=== PATIENT | female | born 1995 | race Hispanic/Latino ===

== ENCOUNTER 2017-09-04 03:13 | Emergency (ER) | payer SELFPAY ==
[2017-09-04 04:16] LABS: #Basophils 0.1 thou/uL (0.0-0.2); #Eosinphils 0.2 thou/uL (0.0-0.7); #Lymphocytes 2.9 thou/uL (1.20-3.40); #Monocytes 0.6 thou/uL (0.11-0.59); #Neutrophils 4.5 thou/uL (1.40-6.50); %Basophils 0.7 % (0.0-1.0); %Lymphocytes 35.4 % (21.0-51.0); %Monocytes 7.2 % (0.0-10.0); %Neutrophils 54.8 % (42.0-75.0); Hemoglobin 12.9 g/dL (12.0-16.0); Mean Corpuscular HGB CONC 35.1 g/dL (32.0-36.0); Mean Corpuscular Hemoglobin 28.8 pg (27.0-31.0); Mean Platelet Volume 7.9 fL (7.4-10.4); Platelet Count 272 thou/uL (130-400); RBC Distribution Width 12.1 % (11.5-14.5); White Blood Cell (WBC) Count 8.1 thou/uL (4.8-10.8)
[2017-09-04 04:18] LABS: Bilirubin Negative (Negative); Blood, Urine Moderate (Negative); Clarity CLEAR (Clear); Glucose, Urine (Dipstick) Negative (Negative); Leukocyte Negative (Negative); Nitrite Negative (Negative); Protein, Urine (Dipstick) Negative (Neg-Trace); Specific Gravity, Urine 1.014 (1.002-1.036); Urobilinogen 0.2 mg/dL (0.2-1.0)
[2017-09-04 04:20] LABS: Bacteria/HPF 1+ HPF (None Seen); Hyaline Casts/LPF 0-3 HYALINE CAST LPF (0-3 Hyaline); Pathc Cast-AUWi Flag 0.13 (0-2.49); WBC/HPF 0-3 HPF (0-3)
[2017-09-04 04:29] LABS: ALT (SGPT) 12 U/L (8-55); AST (SGOT) 18 U/L (5-34); Acetaminophen Less than 6.0 mcg/mL (10.0-30.0); Albumin 4.7 g/dL (3.5-5.0); Alcohol Less than 10 mg/dL (Less than 10); Alkaline Phosphatase 76 U/L (40-150); Anion Gap 11 mmol/L (10-20); BUN (Urea Nitrogen) 12 mg/dL (7.0-18.7); Bilirubin, Total 0.3 mg/dL (0.2-1.2); CK (CPK) 63 U/L (29-168); Calc. Creatinine Clearance 0 mL/min (70-130); Calcium 9.7 mg/dL (7.8-10.44); Carbon Dioxide 23 mmol/L (22-29); Chloride 106 mmol/L (98-107); Estimated GFR-MDRD Greater than 90; Globulin 2.4 g/dL (2.4-3.5); Glucose 105 mg/dL (70-105); Potassium 3.9 mmol/L (3.5-5.1); Protein, Total 7.1 g/dL (6.0-8.3); Salicylate Less than 8.0 mg/dL (15.0-30.0); Sodium 136 mmol/L (136-145)
[2017-09-04 04:29] LABS: Amphetamine Not Detected (NotDetected); Barbiturates Screen Not Detected (NotDetected); Benzodiazepine Screen Not Detected (NotDetected); Cocaine Metabolite Screen Not Detected (NotDetected); Medtox Control Line Valid? VALID (VALID); Medtox Reader # READER 4; Methadone Not Detected (NotDetected); Methamphetamine Not Detected (NotDetected); Opiate Screen Not Detected (NotDetected); Oxycodone Screen Not Detected (NotDetected); Phencyclidine (PCP) Not Detected (NotDetected); THC/Cannabinoid Screen Not Detected (NotDetected); Tricyclic Screen Not Detected (NotDetected)
[2017-09-04 04:34] LABS: Pregnancy Test - Urine (BHCG) Negative (Negative); Pregu Control Background? CLEAR/WHITE (CLR/WHITE); Pregu Control Bar Appear? YES (CONTROL BAR); Specific Gravity 1.014 (1.002-1.036)
== END 2017-09-04 08:31 | disposition home or self-care (01) ==
LOC: ERS 03:13
DX: F30.9 Manic episode, unspecified (principal)
CPT/HCPCS: 36415; 80053; 80306; 80307; 81003; 81015; 81025; 82550; 84443; 85025; 99283

== ENCOUNTER 2017-09-08 00:42 | Emergency (ER) | payer SELFPAY ==
[2017-09-08] MEDS ORDERED: Ziprasidone 20 MG VIAL ONE (02:05)
[2017-09-08] MEDS ORDERED: Lorazepam 2 MG/ML VIAL ONE (02:05)
[2017-09-08] MEDS ORDERED: Water For Injection,Sterile 20 ML ONE (02:06)
[2017-09-08 03:22] LABS: Bilirubin Negative (Negative); Blood, Urine Moderate (Negative); Clarity CLEAR (Clear); Glucose, Urine (Dipstick) Negative (Negative); Leukocyte Moderate (Negative); Nitrite Negative (Negative); Protein, Urine (Dipstick) Trace mg/dL (Neg-Trace); Specific Gravity, Urine 1.019 (1.002-1.036); Urobilinogen 0.2 mg/dL (0.2-1.0); pH, Urine 5.5 (5.0-9.0)
[2017-09-08 03:23] LABS: Pregnancy Test - Urine (BHCG) Negative (Negative); Pregu Control Background? CLEAR/WHITE (CLR/WHITE); Pregu Control Bar Appear? YES (CONTROL BAR); Specific Gravity 1.019 (1.002-1.036)
[2017-09-08 03:27] LABS: Bacteria/HPF None Seen HPF (None Seen); Hyaline Casts/LPF NONE SEEN LPF (0-3 Hyaline); Squamous Epithelial 0-3 HPF (0-3)
[2017-09-08 03:34] LABS: Amphetamine Not Detected (NotDetected); Barbiturates Screen Not Detected (NotDetected); Benzodiazepine Screen Not Detected (NotDetected); Cocaine Metabolite Screen Not Detected (NotDetected); Medtox Control Line Valid? VALID (VALID); Medtox Reader # READER 1; Methadone Not Detected (NotDetected); Methamphetamine Not Detected (NotDetected); Opiate Screen Not Detected (NotDetected); Oxycodone Screen Not Detected (NotDetected); Phencyclidine (PCP) Not Detected (NotDetected); THC/Cannabinoid Screen Not Detected (NotDetected); Tricyclic Screen Not Detected (NotDetected)
[2017-09-08 03:38] LABS: #Basophils 0.1 thou/uL (0.0-0.2); #Eosinphils 0.1 thou/uL (0.0-0.7); #Lymphocytes 2.8 thou/uL (1.20-3.40); #Monocytes 0.8 thou/uL (0.11-0.59); #Neutrophils 4.7 thou/uL (1.40-6.50); %Basophils 0.6 % (0.0-1.0); %Eosinophils 0.7 % (0.0-10.0); %Lymphocytes 33.3 % (21.0-51.0); %Monocytes 9.2 % (0.0-10.0); %Neutrophils 56.2 % (42.0-75.0); Hemoglobin 12.6 g/dL (12.0-16.0); Mean Corpuscular HGB CONC 34.6 g/dL (32.0-36.0); Mean Platelet Volume 7.6 fL (7.4-10.4); Platelet Count 276 thou/uL (130-400); RBC Distribution Width 12.2 % (11.5-14.5); White Blood Cell (WBC) Count 8.4 thou/uL (4.8-10.8)
[2017-09-08 04:00] LABS: ALT (SGPT) 13 U/L (8-55); AST (SGOT) 18 U/L (5-34); Acetaminophen Less than 6.0 mcg/mL (10.0-30.0); Albumin 4.9 g/dL (3.5-5.0); Alcohol Less than 10 mg/dL (Less than 10); Alkaline Phosphatase 64 U/L (40-150); Anion Gap 15 mmol/L (10-20); BUN (Urea Nitrogen) 14 mg/dL (7.0-18.7); Bilirubin, Total 0.5 mg/dL (0.2-1.2); CK (CPK) 178 U/L (29-168); Calc. Creatinine Clearance 0 mL/min (70-130); Calcium 9.7 mg/dL (7.8-10.44); Carbon Dioxide 20 mmol/L (22-29); Chloride 109 mmol/L (98-107); Estimated GFR-MDRD Greater than 90; Globulin 2.6 g/dL (2.4-3.5); Glucose 96 mg/dL (70-105); Potassium 3.7 mmol/L (3.5-5.1); Protein, Total 7.5 g/dL (6.0-8.3); Salicylate Less than 8.0 mg/dL (15.0-30.0); Sodium 140 mmol/L (136-145)
[2017-09-08] MEDS ORDERED: Lorazepam 1 MG TAB ONE ×2 (18:44→23:10)
[2017-09-09] MEDS ORDERED: Haloperidol Lactate 5 MG/ML VIAL ONE ×2 (00:03→19:21)
[2017-09-09] MEDS ORDERED: Water For Injection,Sterile 20 ML ONE (00:26)
[2017-09-09] MEDS ORDERED: Ziprasidone 20 MG VIAL ONE (00:26)
[2017-09-09] MEDS ORDERED: Acetaminophen 500 MG TAB ONE (00:39)
[2017-09-09] MEDS ORDERED: Acetaminophen 325 MG TAB ONE (00:41)
[2017-09-09] MEDS ORDERED: Ziprasidone 20 MG CAP ONE (16:37)
[2017-09-09] MEDS ORDERED: Lorazepam 2 MG/ML VIAL ONE (19:21)
[2017-09-11] MEDS ORDERED: OLANZapine 5 MG TAB PO SCH (09:00)
[2017-09-12] MEDS ORDERED: Ziprasidone 20 MG VIAL ONE (00:26)
[2017-09-12] MEDS ORDERED: Water For Inject, Bacteriostat 30 ML ONE (00:26)
== END 2017-09-12 04:30 ==
LOC: ERS 00:42
DX: F29 Unspecified psychosis not due to a substance or known physiological condition (principal); Z79.899 Other long term (current) drug therapy
CPT/HCPCS: 36415; 80053; 80306; 80307; 81003; 81015; 81025; 82550; 84443; 85025; 96372; J1630; J2060; J3486

== ENCOUNTER 2019-03-24 00:06 | Inpatient (IN) | payer MEDICAID, OTHER, SELFPAY ==
[2019-03-24 00:51] VITALS: BMI 25.0
[2019-03-24] MEDS ORDERED: Butorphanol Tartrate 1 MG/ML VIAL SLOW IVP PRN (00:57)
[2019-03-24] MEDS ORDERED: Lidocaine 1% (PF) 30 ML VIAL SC PRN (00:57)
[2019-03-24] MEDS ORDERED: NS / Oxytocin 40 units/1000ml 1,000 ML IV PRN (00:57)
[2019-03-24] MEDS ORDERED: Ondansetron PF 4 MG/2 ML Vial IVP PRN (00:57)
[2019-03-24] MEDS ORDERED: Ibuprofen 800 MG TAB PO PRN (00:57)
[2019-03-24] MEDS ORDERED: Promethazine HCl 25 MG/ML VIAL IM PRN (00:57)
[2019-03-24] MEDS ORDERED: HYDROcodone/Acetaminophen 5/325 mg Tablet PO PRN ×4 (00:57→02:35)
[2019-03-24] MEDS ORDERED: hydrALAZINE 20 MG/ML VIAL SLOW IVP PRN ×2 (00:57→02:35)
--- NOTE | 2019-03-24 00:59 | PDOC.EVN ---
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
[2019-03-24] MEDS: Lactated Ringer's 1,000 ML IV SCH ×3 (01:00→16:26)
[2019-03-24 01:42] LABS: Hemoglobin 12.3 g/dL (12.0-16.0); Mean Corpuscular Hemoglobin 29.9 pg (27.0-31.0); Mean Corpuscular Volume 85.2 fL (78.0-98.0); Mean Platelet Volume 8.7 fL (7.4-10.4); Platelet Count 222 thou/uL (130-400); Red Blood Cell (RBC) Count 4.13 mill/uL (4.20-5.40); White Blood Cell (WBC) Count 15.4 thou/uL (4.8-10.8)
--- NOTE | 2019-03-24 02:07 | PDOC.LDHP ---
Labor and Delivery H&P HPI: Patient of Shante Asked to be stand by as Shante not available. G1 Current gestational age (weeks): 39 Grav: 1 Current complications: none Abnormal US findings: No Current medications: pre-krystle vitamins Previous surgical history: other (eye surgery 2010) Allergies/Adverse Reactions: Allergies Allergy/AdvReac Type Severity Reaction Status Date / Time quetiapine [From Seroquel] Allergy Verified 03/24/19 00:49 Social history: none - Physical Exam General: NAD Heart: RRR Lungs: CTAB Abdomen: gravid - Vaginal Exam cm dilated: 10 Effacement: 100% Station: 1+ - Assessment L&D Assessment: term patient in labor - Plan Plan: admit to L&D, informed consent obtained, anesthesia consult for pain management
--- NOTE | 2019-03-24 02:12 | PDOC.EVN ---
Event Note - Event Note Event Note: At Bedside: CX 10/100/+2
[2019-03-24 02:21] LABS: HBSAg Index 0.24 S/CO (0-0.99); HIV (1/2) Antibody/Antigen Non-Reactive (NonReactive); Hep B Surf Ag Non-Reactive S/CO (NonReactive)
[2019-03-24] MEDS ORDERED: Carboprost 250 MCG/ML AMP ONE (02:26)
[2019-03-24] MEDS ORDERED: Misoprostol 200 MCG TAB ONE ×4 (02:26→03:31)
--- NOTE | 2019-03-24 02:33 | PDOC.OPDEL ---
OB Operative/Delivery Note Delivery Dr/Surgeon: Orion Pre-Delivery Diagnosis: active labor Procedure/Post Delivery Dx: spontaneous vaginal delivery (at 0220) Anesthesia: local (poured onperineum at delivery (not injected)) - Findings A - 1 min: 7 - 5 min: 9 - Additional Findings/Plan Placenta delivered: spontaneous (at 0223; Chelly) Repaired Obstetrical Laceration: 1st degree (right hymenal not requiring suture) Estimated blood loss: 300 Compilations/Other Findings: baby vigorous No NC Intact placenta with 3vc..Savi at 0223, baby at 0220 Delayed cord clamp for 1 min Post delivery plan: routine recovery (responded to I/O cath and fundal massage. I/O cath for 100ml baby at 0220, no NC Placenta, [place] at 0223 Apgars 7/9 )
[2019-03-24] MEDS ORDERED: Preparation H Ointment 28 GM TUBE PR PRN (02:35)
[2019-03-24] MEDS ORDERED: Bisacodyl 10 MG SUPP PR PRN (02:35)
[2019-03-24] MEDS ORDERED: Lanolin Ointment 7 GM TUBE TOP PRN (02:35)
[2019-03-24] MEDS ORDERED: Milk Of Magnesia 30 ML UDCUP PO PRN (02:35)
[2019-03-24] MEDS ORDERED: NS / Oxytocin 40 units/1000ml 1,000 ML IV SCH (02:45)
--- NOTE | 2019-03-24 03:01 | PDOC.EVN ---
Event Note - Event Note Event Note: Delivery addendum: There was brief uterine atony immediately PP as I was in the room, post placenta. I performed I/O cath and performed uterine fundal massage. I placed 800mvg cytotec [place] as preventative care, but do not suspect PPH as EBL was 300 and QBL was less.
[2019-03-24 04:35] LABS: Syphilis Antibody Nonreactive (Nonreactive); Syphilis Antibody Index 0.03 S/CO (<1.00 Non-Reactive)
[2019-03-24] MEDS: Ibuprofen 800 MG TAB PO SCH ×3 (06:23→21:29)
--- NOTE | 2019-03-24 06:41 | PDOC.PP ---
Post Progress Note Post Day #: 0 Subjective: Doing well PO intake tolerated: yes Flatus: yes Ambulation: yes Vital Signs (12 hours) Temp Pulse Resp BP Pulse Ox 03/24/19 05:25 98.1 F 56 L 18 109/55 L 99 03/24/19 00:41 98.7 F 91 18 120/70 Weight Weight 146 lb - Physical Examination General: NAD Respiratory: non-labored breathing Abdominal: lochia, no distention, appropriately TTP Extremities: negative homans (B) Neurological: no gross focal deficits Psychiatric: A&Ox3, normal affect Result Diagrams: 03/24/19 01:33 Additional Labs: Post Labs Blood Type O POSITIVE 03/24/19 01:43 Hep Bs Antigen Non-Reactive S/CO (NonReactive) 03/24/19 01:33 (1) Vaginal delivery Code(s): O80 - ENCOUNTER FOR FULL-TERM UNCOMPLICATED DELIVERY Status: Acute - Assessment/Plan PPD 4 hrs Doing well Continue routine PP care
[2019-03-24] MEDS: Docusate Calcium (SURFAK) 240 MG CAP PO SCH ×2 (08:52→21:30)
[2019-03-24] MEDS: Ferrous Sulfate 325 MG TAB PO SCH ×2 (08:53→16:26)
[2019-03-24] MEDS ORDERED: Varicella virus, LIVE 0.5 ML VIAL SC ONE (09:00)
[2019-03-24] MEDS ORDERED: Adacel (T-DAP) 0.5 ML SYRINGE IM ONE (09:00)
[2019-03-24] MEDS ORDERED: Measles/Mumps/Rubella 10 MCG/0.5 ML VIAL SC ONE (09:00)
[2019-03-24] MEDS ORDERED: FLU VACC QS2019-20(6MOS UP)/PF 60 MCG/0.5 ML SYRINGE IM ONE (21:00)
[2019-03-25] MEDS: Lactated Ringer's 1,000 ML IV SCH ×2 (04:59→12:23)
[2019-03-25] MEDS: Ibuprofen 800 MG TAB PO SCH ×2 (05:56→14:09)
[2019-03-25] MEDS: Ferrous Sulfate 325 MG TAB PO SCH (09:41)
[2019-03-25] MEDS: Docusate Calcium (SURFAK) 240 MG CAP PO SCH (09:42)
[2019-03-25 12:03] VITALS: BP 108/56; TEMP 97.7
--- NOTE | 2019-03-25 16:27 | PDOC.PP ---
Post Progress Note Post Day #: 1 Subjective: PT is doing very well. She has some abdominal cramping with minimal lochia. Baby is breast feeding well. SHe has been up and ambulating and took a shower this morning. SHe is urinating without difficulty. No leg pain or swelling. PO intake tolerated: yes Flatus: yes Ambulation: yes Vital Signs (12 hours) Temp Pulse Resp BP Pulse Ox 03/25/19 08:00 97.7 F 72 16 108/56 L 97 Weight Weight 146 lb - Physical Examination General: NAD Respiratory: non-labored breathing Abdominal: + bowel sounds, lochia, no distention, appropriately TTP Fundus firm & at: 2 cm below umbilicus Neurological: no gross focal deficits Psychiatric: A&Ox3, normal affect Result Diagrams: 03/24/19 01:33 Additional Labs: Post Labs Blood Type O POSITIVE 03/24/19 01:43 Hep Bs Antigen Non-Reactive S/CO (NonReactive) 03/24/19 01:33 - Assessment/Plan PT is doing well with minimal lochia. Baby is breast feeding well. Pt request to go home later this evening when baby is discharged. Rx for ibuprofen 600 mg sent to pharmacy. She will scheduled 6 week PP f/u. Discharge planning discussed and questions answered.
== END 2019-03-25 16:40 | disposition home or self-care (01) | DRG 807 ==
LOC: L&D/OP 00:06 → L&D 02:22 → 3SW 05:23
PROVIDERS: ADMIT Student in an Organized Health Care Education/Training Program; ATTEND Student in an Organized Health Care Education/Training Program
PROC: 10E0XZZ Delivery of Products of Conception, External Approach (ICD-10-PCS; principal; 2019-03-25)
DX: O70.0 First degree perineal laceration during delivery (principal); Z37.0 Single live birth; Z3A.39 39 weeks gestation of pregnancy; O75.89 Other specified complications of labor and delivery
CPT/HCPCS: 36415; 85027; 86780; 86850; 86900; 86901; 87340; 87389; 90471; 90686; G0008; J0595; J2001; J2405; J3490

== ENCOUNTER 2019-06-25 18:38 | Inpatient (IN) | payer MEDICAID, OTHER, SELFPAY ==
[2019-06-25 20:11] LABS: ALT (SGPT) 13 U/L (8-55); AST (SGOT) 12 U/L (5-34); Alkaline Phosphatase 111 U/L (40-110); Anion Gap 13 mmol/L (10-20); BUN (Urea Nitrogen) 6 mg/dL (7.0-18.7); Bilirubin, Total 0.2 mg/dL (0.2-1.2); Calc. Creatinine Clearance 0 mL/min (70-130); Calcium 9.1 mg/dL (7.8-10.44); Carbon Dioxide 27 mmol/L (22-29); Chloride 103 mmol/L (98-107); Estimated GFR-MDRD Greater than 90; Globulin 3.3 g/dL (2.4-3.5); Glucose 105 mg/dL (70-105); Potassium 3.2 mmol/L (3.5-5.1); Protein, Total 7.3 g/dL (6.0-8.3); Sodium 140 mmol/L (136-145)
[2019-06-25 20:13] LABS: Band 28 % (5-11); Eosinophils 3 % (0-10); Lymphocytes 11 % (21-51); MDiff Complete? YES; Mean Corpuscular HGB CONC 32.4 g/dL (32.0-36.0); Mean Corpuscular Hemoglobin 25.5 pg (27.0-31.0); Mean Corpuscular Volume 78.8 fL (78.0-98.0); Mean Platelet Volume 7.5 fL (7.4-10.4); Monocytes 3 % (0-10); Neutrophil 55 % (42-75); Platelet Count 464 thou/uL (130-400); Platelet Morphology Comment Appears Increased; RBC Distribution Width 12.7 % (11.5-14.5); Red Blood Cell (RBC) Count 3.93 mill/uL (4.20-5.40); White Blood Cell (WBC) Count 21.1 thou/uL (4.8-10.8)
[2019-06-25] MEDS ORDERED: Clindamycin/D5W 600 mg/50 ml Premix Bag ONE (20:58)
--- NOTE | 2019-06-25 21:00 | ULT ---
EXAM: US Breast Complete Rt PROVIDED CLINICAL HISTORY: Patient with right breast swelling for one month. Patient has right breast redness for 3 days. Patien t currently breast-feeding. Patient is on antibiotics secondary to diagnosis of mastitis. COMPARISON: None FINDINGS: Limited sonographic evaluation of the right breast was performed. There is a large heterogeneous cristi ection seen within the central right breast measuring 10.2 cm x 8.3 cm x 6.8 cm. No flow was seen within this collection/structure on color flow evaluation. Given patient's clinical history of infect ion, this may be related to infectious process and possibly abscess collection. Other lesions cannot be entirely excluded based on sonographic evaluation. No other cystic or solid lesion is appre ciated. IMPRESSION: Large heterogeneous collection occupying a large portion of the right breast predominantly centrally within the right breast. Findings may be related to infectious process/abscess collection given patient's clinical history. Other etiologies cannot be entirely excluded.
[2019-06-25] MEDS ORDERED: HYDROcodone/Acetaminophen 10/325 mg Tablet ONE (21:25)
[2019-06-25] MEDS ORDERED: Ibuprofen 200 MG TAB ONE (21:36)
[2019-06-26] MEDS ORDERED: Ondansetron ODT 4 MG TAB SL PRN (01:24)
[2019-06-26] MEDS ORDERED: Sodium Chloride 0.9% 1,000 ML IV SCH (01:24)
[2019-06-26] MEDS ORDERED: Ondansetron PF 4 MG/2 ML Vial IVP PRN (01:24)
[2019-06-26] MEDS ORDERED: Acetaminophen 325 MG TAB PO PRN ×2 (01:24→07:37)
[2019-06-26 02:20] VITALS: BMI 20.5
[2019-06-26] MEDS ORDERED: Loperamide HCl 2 MG CAP PO PRN (07:37)
[2019-06-26] MEDS ORDERED: Ondansetron ODT 4 MG TAB PO PRN (07:37)
[2019-06-26] MEDS ORDERED: Bisacodyl 5 MG TAB PO PRN (07:37)
[2019-06-26] MEDS ORDERED: Senokot S 8.6-50 MG TAB PO PRN (07:37)
[2019-06-26] MEDS ORDERED: HYDROcodone/Acetaminophen 5/325 mg Tablet PO PRN (07:37)
[2019-06-26] MEDS ORDERED: diphenhydrAMINE 25 MG CAP PO PRN (07:39)
[2019-06-26] MEDS ORDERED: Labetalol HCl 100 MG/20 ML VIAL SLOW IVP PRN (07:39)
[2019-06-26] MEDS ORDERED: Benzonatate 100 MG CAP PO PRN (07:39)
[2019-06-26] MEDS ORDERED: Melatonin 3 MG TAB PO PRN (07:39)
[2019-06-26 07:42] LABS: #Eosinphils 0.4 thou/uL (0.0-0.7); #Lymphocytes 1.6 thou/uL (1.20-3.40); #Monocytes 1.4 thou/uL (0.11-0.59); #Neutrophils 15.7 thou/uL (1.40-6.50); %Basophils 0.1 % (0.0-1.0); %Lymphocytes 8.1 % (21.0-51.0); %Monocytes 7.2 % (0.0-10.0); %Neutrophils 82.5 % (42.0-75.0); Hemoglobin 8.9 g/dL (12.0-16.0); Mean Corpuscular HGB CONC 34.4 g/dL (32.0-36.0); Mean Corpuscular Hemoglobin 27.5 pg (27.0-31.0); Mean Corpuscular Volume 79.9 fL (78.0-98.0); Mean Platelet Volume 7.2 fL (7.4-10.4); Platelet Count 404 thou/uL (130-400); RBC Distribution Width 12.9 % (11.5-14.5); Red Blood Cell (RBC) Count 3.22 mill/uL (4.20-5.40); White Blood Cell (WBC) Count 19.1 thou/uL (4.8-10.8)
[2019-06-26] MEDS ORDERED: Morphine 2 MG/ML SYRINGE SLOW IVP PRN (07:53)
--- NOTE | 2019-06-26 09:28 | CON ---
DATE OF CONSULTATION: HISTORY OF PRESENT ILLNESS: Nedra Sullivan is a 23-year-old, three months two days , her first girl, breast feeding, began having right breast problems 06/11, started antibiotics June 22, dicloxacillin and taking ibuprofen for the pain, presents to the emergency room, noted to have a white count of 21,000. Ultrasound of the right breast revealed an abscess, very large in size. Her breast became so painful yesterday, she stopped breast-feeding. As I walked in the room she is breast-feeding on the left. She has a pump available. Her right breast is markedly engorged and firm. On admission, her white count was 21,000, it is 19,000 today, hemoglobin 10 on admission, 8.9 today. She has been placed on intravenous antibiotics, clindamycin. Dr. Frey is her OB. ALLERGIES: NONE. SOCIAL HISTORY: Tobacco none. Alcohol None. MEDICATIONS: None. PAST SURGICAL/MEDICAL HISTORY: Noncontributory. REVIEW OF SYSTEMS: Noncontributory. PHYSICAL EXAMINATION: VITAL SIGNS: 5 feet 4, 119 pounds, 20 BMI 98.9, 104, . HEAD, EARS, EYES, NOSE AND THROAT: Unremarkable. LUNGS: Clear to auscultation. CARDIAC: Regular rate and rhythm without murmur or gallop. ABDOMEN: Soft and nontender. No masses. EXTREMITIES: Unremarkable. BREAST: Left breast normal. Axilla normal. Right breast heavily engorged and firm with slight redness superiorly. ASSESSMENT AND PLAN: Right mastitis. We would recommend continue breast pump or breast feeding on the right. Continue IV antibiotics. We will talk to Radiology regarding ultrasound-guided aspiration. If all measures fail, then Dr. Frey will be consulted to aid in cessation and drainage of her right breast abscess. Job ID: [id number]
[2019-06-26] MEDS: Famotidine/PF 20 mg/2ml Vial SLOW IVP SCH ×2 (09:54→20:10)
[2019-06-26] MEDS: Clindamycin/D5W 600 MG in Premix Bag 1 BAG IVPB SCH ×2 (11:02→21:50)
--- NOTE | 2019-06-26 13:18 | ULT ---
Right breast abscess aspiration sonographic guided HISTORY: Painful right breast abscess. FINDINGS: After expansion the procedure and answering all questions, sonographic survey again shows l arge heterogeneous thick fluid collection in the superior aspect of the right breast. Sterile technique, buffered local anesthesia, sonographic guidance, and a superior approach were used to care fully advance a 19-gauge Yueh needle and catheter into the complex collection of loose material. A total volume of 350 cc mixed thickness light brown opaque fluid was aspirated. A portion sent to je [facility] for analysis. Multiple insertions of the catheter were required because of the thickness of the material. Postprocedure imaging shows decompression of the fluid collection. No evidence of complication. Patie nt tolerated the procedure well and was returned in improved condition. IMPRESSION: Technically successful sonographic guided right breast abscess drainage. Pathology is pen ding.
[2019-06-26 13:49] LABS: BF Color Gray; Body Fluid Source Abscess Fluid; Clarity Cloudy/Turbid (Clear); Tube # EDTA
--- NOTE | 2019-06-26 13:59 | PDOC.HHP ---
Hospitalist HPI - History of Present Illness Breast swelling and pain History of Present Illness: 23-year-old female who is three months presents with worsening breast pain and swelling. Patient was seen by her [employer] physician and started on oral antibiotics on June 22 for mastitis. has been compliant with these antibiotics and despite medical therapy she has not had improvement. Patient presenting to acute care hospital found to be septic with the WBC count greater than 20,000 and tachycardia. Patient with ultrasound of the breast demonstrating 10 cm x 8 cm x 6 cm fluid collection. General surgery consultation requested for further recommendations. Patient started on intravenous antibiotics with consideration for a mother who is nursing. Patient seen and examined on medical/surgical floor. She is resting comfortably. Pain is persistent and not controlled with low-dose ibuprofen. I have adjusted pain medications. Time was given for questions, all answered in detail. Hospitalist ROS - Review of Systems All other systems reviewed; all pertinent +/- noted in HPI/Subj - Medication Medications: Active Medications Generic Name Dose Route Start Last Admin Trade Name Freq PRN Reason Stop Dose Admin Famotidine 20 mg 06/26/19 09:00 06/26/19 09:54 Pepcid SLOW IVP 20 mg Q12HR JOSIE Administration Clindamycin Phosphate/Dextrose 50 mls @ 100 mls/hr 06/26/19 14:00 06/26/19 11 :02 600 mg/ Device IVPB 50 mls Q8HR JOSIE Administration Hospitalist History - Past Medical History Source: patient, family Other Medical History: Post 3 months - Social History Smoking Status: Unknown if ever smoked Alcohol: reports: None Drugs: reports: none Living Situation: With Family Domestic Violence: Negative Activity level: independent ambulation - Exam General Appearance: NAD, awake alert Eye: PERRL, anicteric sclera ENT: normocephalic atraumatic Neck: no lymphadenopathy Heart: no murmur, no gallops, no rubs Respiratory: CTAB, no wheezes, no rales, no ronchi Gastrointestinal: soft, non-tender, non-distended, no guarding, no rigidity Extremities: no edema Skin: no lesions Skin - other findings: Right breast with cellulitis above the nipple, errythema and warmth Neurological: cranial nerve grossly intact, no focal deficits Musculoskeletal: normal strength Psychiatric: normal affect, normal behavior, A&O x 3 Hospitalist Results - Labs Result Diagrams: 06/26/19 07:25 06/25/19 19:36 Lab results: WBC 19.1 thou/uL (4.8-10.8) H 06/26/19 07:25 Hgb 8.9 g/dL (12.0-16.0) L 06/26/19 07:25 Hct 25.7 % (36.0-47.0) L 06/26/19 07:25 MCV 79.9 fL (78.0-98.0) 06/26/19 07:25 Plt Count 404 thou/uL (130-400) H 06/26/19 07:25 Neutrophils % 82.5 % (42.0-75.0) H 06/26/19 07:25 Band Neuts % (Manual) 28 % (5-11) H 06/25/19 19:36 Sodium 140 mmol/L (136-145) 06/25/19 19:36 Potassium 3.2 mmol/L (3.5-5.1) L 06/25/19 19:36 Chloride 103 mmol/L (98-107) 06/25/19 19:36 Carbon Dioxide 27 mmol/L (22-29) 06/25/19 19:36 BUN 6 mg/dL (7.0-18.7) L 06/25/19 19:36 Creatinine 0.78 mg/dL (0.6-1.1) 06/25/19 19:36 Glucose 105 mg/dL (70-105) 06/25/19 19:36 Lactic Acid 0.9 mmol/L (0.5-2.2) 06/25/19 19:36 Calcium 9.1 mg/dL (7.8-10.44) 06/25/19 19:36 Total Bilirubin 0.2 mg/dL (0.2-1.2) 06/25/19 19:36 AST 12 U/L (5-34) 06/25/19 19:36 ALT 13 U/L (8-55) 06/25/19 19:36 Alkaline Phosphatase 111 U/L (40-110) H 06/25/19 19:36 Serum Total Protein 7.3 g/dL (6.0-8.3) 06/25/19 19:36 Albumin 4.0 g/dL (3.5-5.0) 06/25/19 19:36 - Radiology Interpretation Other Status: image reviewed by me Additional Comment: US breast Hospitalist H&P A/P - Problem (1) Mastitis Code(s): N61.0 - MASTITIS WITHOUT ABSCESS Status: Acute (2) Breast swelling Code(s): N63.0 - UNSPECIFIED LUMP IN UNSPECIFIED BREAST Status: Acute (3) Breast abscess Code(s): N61.1 - ABSCESS OF THE BREAST AND NIPPLE Status: Acute (4) Breast pain Status: Acute (5) Sepsis Code(s): A41.9 - SEPSIS, UNSPECIFIED ORGANISM Status: Acute (6) Leukocytosis Code(s): D72.829 - ELEVATED WHITE BLOOD CELL COUNT, UNSPECIFIED Status: Acute - Plan Plan: Plan: medical/surgical unit general surgery consultation, recommendations appreciated patient may benefit from aspiration/drainage for definitive management of antibiotics IV antibiotics De escalate to culture and sensitivity as able IV fluid resuscitation Tylenol as needed for fever pain control preferred with ibuprofen first choice, [place] second choice, morphine for refractory pain patient is to continue to pump breast milk warm compresses G.I. prophylaxis DVT prophylaxis SCDs
--- NOTE | 2019-06-26 15:10 | PRG ---
DATE OF SERVICE: 06/26/2019 SUBJECTIVE: Ms. Sullivan underwent aspiration of right breast, ultrasound-guided. She had a copious amount of material sent for culture. Postprocedural, her breast looks much better. It feels better. I have informed her that she may need to have this aspirated again. She was encouraged to continue and/or breast pumping on the right. She is encouraged to continue oral antibiotics. In my opinion, she can be discharged home at any time and follow up with me as needed in the future or I will be out of town next week, and Dr. Jackson can see her as needed. She should follow up with Dr. Frey also. At this point, I will see her as needed. Please call if necessary. Job ID: [id number]
[2019-06-26] MEDS: HYDROcodone/Acetaminophen 5/325 mg Tablet PO PRN ×2 (15:34→21:54)
[2019-06-26] MEDS: Potassium Chloride 40 MEQ in Sodium Chloride 0.45% 1,000 ML IV SCH (15:35)
[2019-06-26] MEDS: Ondansetron PF 4 MG/2 ML Vial IVP PRN (21:53)
[2019-06-27] MEDS: Potassium Chloride 40 MEQ in Sodium Chloride 0.45% 1,000 ML IV SCH ×2 (03:09→15:06)
[2019-06-27] MEDS: Clindamycin/D5W 600 MG in Premix Bag 1 BAG IVPB SCH ×3 (05:07→21:41)
[2019-06-27 05:56] LABS: #Basophils 0.1 thou/uL (0.0-0.2); #Eosinphils 0.7 thou/uL (0.0-0.7); #Lymphocytes 2.3 thou/uL (1.20-3.40); #Neutrophils 12.5 thou/uL (1.40-6.50); %Basophils 0.3 % (0.0-1.0); %Eosinophils 4.2 % (0.0-10.0); %Lymphocytes 14.1 % (21.0-51.0); %Neutrophils 75.4 % (42.0-75.0); Hemoglobin 8.2 g/dL (12.0-16.0); Mean Corpuscular Volume 78.8 fL (78.0-98.0); Mean Platelet Volume 7.4 fL (7.4-10.4); Platelet Count 412 thou/uL (130-400); Red Blood Cell (RBC) Count 3.15 mill/uL (4.20-5.40); White Blood Cell (WBC) Count 16.6 thou/uL (4.8-10.8)
[2019-06-27 06:18] LABS: Anion Gap 16 mmol/L (10-20); BUN (Urea Nitrogen) 5 mg/dL (7.0-18.7); Calc. Creatinine Clearance 106 mL/min (70-130); Calcium 7.9 mg/dL (7.8-10.44); Carbon Dioxide 20 mmol/L (22-29); Chloride 105 mmol/L (98-107); Estimated GFR-MDRD Greater than 90; Glucose 88 mg/dL (70-105); Potassium 3.5 mmol/L (3.5-5.1); Sodium 137 mmol/L (136-145)
[2019-06-27] MEDS: Famotidine/PF 20 mg/2ml Vial SLOW IVP SCH ×2 (08:58→20:14)
[2019-06-27] MEDS: HYDROcodone/Acetaminophen 5/325 mg Tablet PO PRN ×3 (09:03→20:20)
--- NOTE | 2019-06-27 16:27 | PRG ---
DATE OF SERVICE: 06/27/2019 Ms. Sullivan underwent ultrasound-guided aspiration of right breast. It still feels much better than before. Gram-stain reveals gram-negative rods. She has had temperatures to 100.5 degrees. Her breast is soft with some mild redness in the upper outer quadrant. ASSESSMENT AND PLAN: Lactating female with right mastitis, status post aspiration, copious amount of debris, improving her pain. We would recommend continuing and breast pump attempts on the right. She has continued to do that, ice packs and heating pads for comfort. I would recommend that she continue antibiotics. She may need repeat aspirations. If repeat aspirations fail, she may need incision and drainage and might need after that effort if necessary medical treatment to cease . We will continue to observe. She can be discharged home anytime if clinically improved, so she can be followed up as an outpatient. White count this morning is 16. I will be seeing her tomorrow. Job ID: [id number]
--- NOTE | 2019-06-27 16:32 | PDOC.HOSPP ---
- Subjective Encounter Date: 06/27/19 Encounter Time: 16:31 Subjective: pt up in bed still is having pain to her right breast. - Objective Vital Signs & Weight: Vital Signs (12 hours) Temp Pulse Resp BP Pulse Ox 06/27/19 15:03 98.0 F 106 H 18 105/71 98 06/27/19 10:41 97.9 F 103 H 20 101/60 96 06/27/19 08:00 100.5 F H 96 06/27/19 07:32 100.5 F H 111 H 18 103/68 96 Weight Weight 119 lb 3.2 oz I&O: 06/26/19 06/27/19 06/28/19 06:59 06:59 06:59 Intake Total 700 1462.5 Balance 700 1462.5 Result Diagrams: 06/27/19 05:32 06/27/19 05:32 Hospitalist ROS - Review of Systems Cardiovascular: denies: chest pain, palpitations, orthopnea, paroxysmal noc. dyspnea, edema, light headedness, other Gastrointestinal: denies: nausea, vomiting, abdominal pain, diarrhea, constipation, melena, hematochezia, other Genitourinary: denies: dysuria, frequency, incontinence, hematuria, retention, other Other: pt to her right breast - Medication Medications: Active Medications Generic Name Dose Route Start Last Admin Trade Name Freq PRN Reason Stop Dose Admin Hydrocodone Bitart/Acetaminophen 1 tab 06/26/19 10:05 06/27/19 13:19 [place] 5/325 PO 1 tab Q4H PRN Administration Moderate to Severe Pain (6-10) Famotidine 20 mg 06/26/19 09:00 06/27/19 08:58 Pepcid SLOW IVP 20 mg Q12HR JOSIE Administration Clindamycin Phosphate/Dextrose 50 mls @ 100 mls/hr 06/26/19 14:00 06/27/19 13 :16 600 mg/ Device IVPB 50 mls Q8HR JOSIE Administration Ondansetron HCl 4 mg 06/26/19 07:37 06/26/19 21:53 Zofran IVP 4 mg Q6H PRN Administration Nausea/Vomiting - Exam Heart: negative: RRR, no murmur, no gallops, no rubs, normal peripheral pulses, irregular, diminshed peripheral pulses, murmur present, II/IV, III/IV Respiratory: negative: CTAB, no wheezes, no rales, no ronchi, normal chest expansion, no tachypnea, normal percussion, rales, rhonchi, tachypneic, wheezes Gastrointestinal: negative: soft, non-tender, non-distended, normal bowel sounds , no palpable masses, no hepatomegaly, no splenomegaly, no bruit, no guarding, no rigidity, tender to palpation, distended, diminished bowl sounds, voluntary guarding Musculoskeletal - other findings: right breast erythema Hosp A/P (1) Breast abscess Code(s): N61.1 - ABSCESS OF THE BREAST AND NIPPLE Status: Acute (2) Leukocytosis Code(s): D72.829 - ELEVATED WHITE BLOOD CELL COUNT, UNSPECIFIED Status: Acute (3) Mastitis Code(s): N61.0 - MASTITIS WITHOUT ABSCESS Status: Acute (4) Sepsis Code(s): A41.9 - SEPSIS, UNSPECIFIED ORGANISM Status: Acute - Plan pt s/p I&D is doing well but still having pain to her right breast. recommended warm compress. Pt's abx and NSAID had RID <10% updated pt and . Awaiting micro report.
[2019-06-28] MEDS: Clindamycin/D5W 600 MG in Premix Bag 1 BAG IVPB SCH ×3 (05:21→21:38)
[2019-06-28] MEDS: HYDROcodone/Acetaminophen 5/325 mg Tablet PO PRN ×3 (05:33→21:44)
[2019-06-28] MEDS ORDERED: Polyethylene Glycol 3350 17 GM Packet PO PRN (08:33)
[2019-06-28] MEDS: Famotidine 20 MG TAB PO SCH ×2 (09:32→21:38)
[2019-06-28] MEDS: Docusate 100 MG CAP PO SCH ×2 (09:33→21:38)
[2019-06-28 09:51] LABS: #Eosinphils 0.8 thou/uL (0.0-0.7); #Lymphocytes 1.8 thou/uL (1.20-3.40); #Monocytes 1.1 thou/uL (0.11-0.59); #Neutrophils 9.5 thou/uL (1.40-6.50); %Basophils 0.3 % (0.0-1.0); %Lymphocytes 13.5 % (21.0-51.0); %Monocytes 8.1 % (0.0-10.0); %Neutrophils 72.2 % (42.0-75.0); Mean Corpuscular HGB CONC 33.2 g/dL (32.0-36.0); Mean Corpuscular Hemoglobin 26.2 pg (27.0-31.0); Mean Corpuscular Volume 78.8 fL (78.0-98.0); Platelet Count 465 thou/uL (130-400); RBC Distribution Width 13.1 % (11.5-14.5); Red Blood Cell (RBC) Count 3.42 mill/uL (4.20-5.40); White Blood Cell (WBC) Count 13.1 thou/uL (4.8-10.8)
[2019-06-28 10:16] LABS: Anion Gap 12 mmol/L (10-20); BUN (Urea Nitrogen) Less than 4 mg/dL (7.0-18.7); Calc. Creatinine Clearance 109 mL/min (70-130); Calcium 8.8 mg/dL (7.8-10.44); Carbon Dioxide 27 mmol/L (22-29); Chloride 103 mmol/L (98-107); Estimated GFR-MDRD Greater than 90; Glucose 89 mg/dL (70-105); Potassium 3.8 mmol/L (3.5-5.1); Sodium 138 mmol/L (136-145)
--- NOTE | 2019-06-28 14:36 | PRG ---
DATE OF SERVICE: 06/28/2019 Ms. Sullivan is doing well today. Her breast feels better, although she is still having some pain. There is still some redness in the upper outer quadrant of the right breast. She has been afebrile for the last 24 hours. Her white count is decreased to 13. She continues on IV antibiotics and p.o. antibiotics. At this point, I would recommend that she have another ultrasound. I have discussed with Radiology, we will plan that tomorrow ultrasound with possible aspiration of the contents. She may need to have an incision and drainage, if this persist. I will be out of town the rest of the week and Dr. Frankel will assume her care. Job ID: [id number]
--- NOTE | 2019-06-28 15:17 | PDOC.HOSPP ---
- Subjective Subjective: Seen and examined with nursing staff and patient's family and has been at bedside upper outer quadrant of the breast remains with cellulitis, warmth and pain. Pain has improved since she had aspiration. Repeat ultrasound planned for tomorrow and may require second aspiration. - Objective Vital Signs & Weight: Vital Signs (12 hours) Temp Pulse Resp BP Pulse Ox 06/28/19 15:03 99.2 F 109 H 16 110/72 96 06/28/19 11:01 98.4 F 126 H 20 110/64 98 06/28/19 08:00 97 06/28/19 07:59 97.9 F 97 20 101/65 97 06/28/19 03:40 99.5 F 104 H 18 103/65 98 Weight Weight 119 lb 3.2 oz I&O: 06/27/19 06/28/19 06/29/19 06:59 06:59 06:59 Intake Total 1462.5 2460 Balance 1462.5 2460 Result Diagrams: 06/28/19 09:41 06/28/19 09:41 Radiology Reviewed by me: Yes Hospitalist ROS - Review of Systems All other systems reviewed; all pertinent +/- noted in HPI/Subj - Medication Medications: Active Medications Generic Name Dose Route Start Last Admin Trade Name Freq PRN Reason Stop Dose Admin Hydrocodone Bitart/Acetaminophen 1 tab 06/26/19 10:05 06/28/19 13:37 [place] 5/325 PO 1 tab Q4H PRN Administration Moderate to Severe Pain (6-10) Dicloxacillin Sodium 500 mg 06/27/19 17:00 06/28/19 13:38 Dynapen PO 500 mg QID JOSIE Administration Docusate Sodium 100 mg 06/28/19 09:00 06/28/19 09:33 Colace PO 100 mg BID JOSIE Administration Famotidine 20 mg 06/28/19 09:00 06/28/19 09:32 Pepcid PO 20 mg BID JOSIE Administration Clindamycin Phosphate/Dextrose 50 mls @ 100 mls/hr 06/26/19 14:00 06/28/19 13 :39 600 mg/ Device IVPB 50 mls Q8HR JOSIE Administration Ondansetron HCl 4 mg 06/26/19 07:37 06/26/19 21:53 Zofran IVP 4 mg Q6H PRN Administration Nausea/Vomiting - Exam General Appearance: NAD, awake alert Eye: anicteric sclera ENT: normocephalic atraumatic, moist mucosa Neck: supple, symmetric, no lymphadenopathy Heart: RRR, no murmur, no gallops, no rubs Respiratory: CTAB, no wheezes, no rales, no ronchi, normal chest expansion Gastrointestinal: soft, non-tender, no guarding, no rigidity Extremities: no edema Skin - other findings: Right breast upper outter quadrant with cellulitis Neurological: cranial nerve grossly intact, no focal deficits Musculoskeletal: normal tone, normal strength Psychiatric: normal affect, normal behavior, A&O x 3 Hosp A/P (1) Mastitis Code(s): N61.0 - MASTITIS WITHOUT ABSCESS Status: Acute (2) Breast swelling Code(s): N63.0 - UNSPECIFIED LUMP IN UNSPECIFIED BREAST Status: Acute (3) Breast abscess Code(s): N61.1 - ABSCESS OF THE BREAST AND NIPPLE Status: Acute (4) Breast pain Status: Acute (5) Sepsis Code(s): A41.9 - SEPSIS, UNSPECIFIED ORGANISM Status: Acute (6) Leukocytosis Code(s): D72.829 - ELEVATED WHITE BLOOD CELL COUNT, UNSPECIFIED Status: Acute - Plan Plan: Medical/ surgical unit status post aspiration/drainage however area has become swollen, erythematous, and painful again repeat ultrasound with possible aspiration again tomorrow a.m. IV antibiotics, oral antibiotics Fevers resolving WBC normalizing De escalate to culture and sensitivity as able pain control warm compresses symptomatic medications for constipation G.I. prophylaxis DVT prophylaxis SCDs
[2019-06-28] MEDS: Acetaminophen 500 MG TAB PO PRN (19:23)
[2019-06-28] MEDS: Ondansetron PF 4 MG/2 ML Vial IVP PRN (21:43)
[2019-06-29 05:04] LABS: #Eosinphils 0.5 thou/uL (0.0-0.7); #Lymphocytes 1.5 thou/uL (1.20-3.40); #Monocytes 1.2 thou/uL (0.11-0.59); #Neutrophils 10.1 thou/uL (1.40-6.50); %Basophils 0.2 % (0.0-1.0); %Eosinophils 3.8 % (0.0-10.0); %Lymphocytes 11.3 % (21.0-51.0); %Monocytes 9.1 % (0.0-10.0); %Neutrophils 75.7 % (42.0-75.0); Hemoglobin 9.3 g/dL (12.0-16.0); Mean Corpuscular HGB CONC 33.2 g/dL (32.0-36.0); Mean Corpuscular Hemoglobin 26.2 pg (27.0-31.0); Mean Corpuscular Volume 78.9 fL (78.0-98.0); Mean Platelet Volume 6.9 fL (7.4-10.4); Platelet Count 481 thou/uL (130-400); RBC Distribution Width 13.1 % (11.5-14.5); Red Blood Cell (RBC) Count 3.54 mill/uL (4.20-5.40); White Blood Cell (WBC) Count 13.3 thou/uL (4.8-10.8)
[2019-06-29] MEDS: Clindamycin/D5W 600 MG in Premix Bag 1 BAG IVPB SCH ×3 (05:12→21:24)
[2019-06-29 05:20] LABS: Anion Gap 13 mmol/L (10-20); BUN (Urea Nitrogen) Less than 4 mg/dL (7.0-18.7); Calc. Creatinine Clearance 101 mL/min (70-130); Calcium 8.9 mg/dL (7.8-10.44); Carbon Dioxide 29 mmol/L (22-29); Chloride 101 mmol/L (98-107); Estimated GFR-MDRD Greater than 90; Glucose 95 mg/dL (70-105); Potassium 4.5 mmol/L (3.5-5.1); Sodium 138 mmol/L (136-145)
[2019-06-29] MEDS: HYDROcodone/Acetaminophen 5/325 mg Tablet PO PRN ×2 (05:53→09:35)
[2019-06-29] MEDS: Sodium Chloride 0.9% 1,000 ML IV SCH (06:46)
--- NOTE | 2019-06-29 09:20 | PRG ---
DATE OF SERVICE: 06/29/2019 SUBJECTIVE: Ms. Sullivan has persistent pain and borderline temperatures. Her swelling in her right breast has become significant again. OBJECTIVE: VITAL SIGNS: Her pulse is 111. She is afebrile now. Her blood pressure is stable. Chest: Clear. BREASTS: Right breast, there is significant inflammatory change and redness and fluctuance to the right upper outer breast. Band-Aid is in place at location of previous aspiration. ASSESSMENT: Right breast abscess in the setting of breast feeding. PLAN: Unfortunately, going to have to perform open I and D today in the operating room. Risks, benefits, alternatives discussed. She gives consent. We will do this today. Job ID: [id number]
[2019-06-29] MEDS: Famotidine 20 MG TAB PO SCH ×2 (09:36→21:24)
[2019-06-29] MEDS: Docusate 100 MG CAP PO SCH ×2 (09:36→21:24)
[2019-06-29] MEDS ORDERED: Bupivacaine 0.25% HCL 30 ML VIAL ONE (13:13)
[2019-06-29] MEDS ORDERED: Clindamycin/D5W 600 mg/50 ml Premix Bag ONE (13:34)
[2019-06-29] MEDS ORDERED: Propofol 500 MG/50 ML VIAL ONE (13:53)
[2019-06-29] MEDS ORDERED: PHENYLEPHRINE-NS 100 MCG/ML 10 ML SYRINGE ONE (14:05)
[2019-06-29] MEDS ORDERED: PROPOFOL 200 MG/20 ML VIAL ONE (14:05)
[2019-06-29] MEDS ORDERED: Fentanyl 100 MCG/2 ML VIAL ONE (14:40)
--- NOTE | 2019-06-29 15:52 | PDOC.HOSPP ---
- Subjective Encounter Date: 06/29/19 Encounter Time: 15:51 Subjective: Ms. Sullivan was seen today in follow-up of mastitis and breast abscess. She notes some pain, but otherwise ok. She says it is better than prior to surgery. - Objective Vital Signs & Weight: Vital Signs (12 hours) Temp Pulse Resp BP Pulse Ox 06/29/19 11:10 98.0 F 109 H 18 102/66 98 06/29/19 07:10 98.6 F 111 H 16 99/65 94 L 06/29/19 05:19 99.6 F 113 H 16 105/68 95 Weight Weight 119 lb 3.2 oz I&O: 06/28/19 06/29/19 06/30/19 06:59 06:59 06:59 Intake Total 2460 1500 800 Balance 2460 1500 800 Result Diagrams: 06/29/19 04:49 06/29/19 04:49 Hospitalist ROS - Medication Medications: Active Medications Generic Name Dose Route Start Last Admin Trade Name Freq PRN Reason Stop Dose Admin Acetaminophen 1,000 mg 06/26/19 12:21 06/28/19 19:23 Tylenol PO 1,000 mg Q6H PRN Administration Moderate to Severe Pain (6-10) Hydrocodone Bitart/Acetaminophen 1 tab 06/26/19 10:05 06/29/19 09:35 [place] 5/325 PO 1 tab Q4H PRN Administration Moderate to Severe Pain (6-10) Dicloxacillin Sodium 500 mg 06/27/19 17:00 06/29/19 09:35 Dynapen PO 500 mg QID JOSIE Administration Docusate Sodium 100 mg 06/28/19 09:00 06/29/19 09:36 Colace PO 100 mg BID JOSIE Administration Famotidine 20 mg 06/28/19 09:00 06/29/19 09:36 Pepcid PO 20 mg BID JOSIE Administration Clindamycin Phosphate/Dextrose 50 mls @ 100 mls/hr 06/26/19 14:00 06/29/19 05 :12 600 mg/ Device IVPB 50 mls Q8HR JOSIE Administration Sodium Chloride 1,000 mls @ 90 mls/hr 06/29/19 06:45 06/29/19 06:46 Normal Saline 0.9% IV 1,000 mls .Q11H7M JOSIE Administration Ondansetron HCl 4 mg 06/26/19 07:37 06/28/19 21:43 Zofran IVP 4 mg Q6H PRN Administration Nausea/Vomiting - Exam Eye: PERRL Heart: RRR, no gallops, no rubs, normal peripheral pulses, murmur present ( slight flow murmur) Respiratory: CTAB, no wheezes, no rales, no ronchi, normal chest expansion, no tachypnea, normal percussion Gastrointestinal: soft, non-tender, non-distended, normal bowel sounds, no palpable masses, no hepatomegaly, no splenomegaly Extremities: no cyanosis, no edema (on the extremities, edema and induration of the right breast) Hosp A/P (1) Breast abscess Code(s): N61.1 - ABSCESS OF THE BREAST AND NIPPLE Status: Acute (2) Mastitis Code(s): N61.0 - MASTITIS WITHOUT ABSCESS Status: Acute (3) Sepsis Code(s): A41.9 - SEPSIS, UNSPECIFIED ORGANISM Status: Acute - Plan * Mastitis, with right breast abscess- she is s/p repeat aspiration * Continue Clindamycin and Dicloxacillin * check CBC in the AM
[2019-06-29] MEDS: HYDROcodone/Acetaminophen 7.5/325 mg Tablet PO PRN (16:17)
[2019-06-29] MEDS: Ibuprofen 800 MG TAB PO PRN (16:21)
[2019-06-29] MEDS: Acetaminophen 500 MG TAB PO PRN (21:31)
--- NOTE | 2019-06-29 23:49 | OP ---
DATE OF PROCEDURE: 06/29/2019 PREOPERATIVE DIAGNOSIS: Right breast abscess. POSTOPERATIVE DIAGNOSIS: Right breast abscess. PROCEDURE: Mastodynia (incision and drainage of deep right breast abscess). ANESTHESIA: General. ESTIMATED BLOOD LOSS: Minimal. COMPLICATIONS: None. SPECIMEN: Cultures taken for anaerobes. TECHNIQUE: The patient was taken to the operating room and laid supine on the operating room table. After general anesthetic was obtained, the right breast and chest were prepped and draped in a sterile fashion. An elliptical incision was made over the most fluctuant part of the abscess. Cultures were taken. The wound was irrigated using warm sterile solution until returns were clear. Meticulous hemostasis was obtained. The wound was packed using 2-inch iodoform gauze followed by sterile dressings. The patient tolerated the procedure well. She was sent to Recovery in stable condition. All instrument counts, needle counts, and lap counts are correct. Job ID: [id number]
[2019-06-30] MEDS: HYDROcodone/Acetaminophen 7.5/325 mg Tablet PO PRN ×3 (00:12→17:54)
[2019-06-30] MEDS: Ibuprofen 800 MG TAB PO PRN ×3 (00:12→20:38)
[2019-06-30] MEDS: Sodium Chloride 0.9% 1,000 ML IV SCH ×3 (00:15→07:47)
[2019-06-30 05:11] LABS: #Eosinphils 0.5 thou/uL (0.0-0.7); #Lymphocytes 2.5 thou/uL (1.20-3.40); #Monocytes 0.9 thou/uL (0.11-0.59); #Neutrophils 7.3 thou/uL (1.40-6.50); %Basophils 0.3 % (0.0-1.0); %Eosinophils 4.9 % (0.0-10.0); %Neutrophils 64.9 % (42.0-75.0); Hemoglobin 8.2 g/dL (12.0-16.0); Mean Corpuscular HGB CONC 33.3 g/dL (32.0-36.0); Mean Corpuscular Hemoglobin 26.7 pg (27.0-31.0); Mean Corpuscular Volume 80.1 fL (78.0-98.0); Mean Platelet Volume 6.9 fL (7.4-10.4); Platelet Count 498 thou/uL (130-400); RBC Distribution Width 13.1 % (11.5-14.5); Red Blood Cell (RBC) Count 3.08 mill/uL (4.20-5.40); White Blood Cell (WBC) Count 11.2 thou/uL (4.8-10.8)
[2019-06-30] MEDS: Acetaminophen 500 MG TAB PO PRN ×2 (05:23→20:38)
[2019-06-30] MEDS: HYDROcodone/Acetaminophen 5/325 mg Tablet PO PRN ×2 (05:23→22:08)
[2019-06-30] MEDS: Clindamycin/D5W 600 MG in Premix Bag 1 BAG IVPB SCH ×3 (05:24→22:03)
[2019-06-30] MEDS: Docusate 100 MG CAP PO SCH ×2 (07:46→20:38)
[2019-06-30] MEDS: Famotidine 20 MG TAB PO SCH ×2 (07:46→20:39)
--- NOTE | 2019-06-30 09:08 | PDOC.GSPN ---
Surgery Progress Note: Subj - Subjective Patient reports: pain well controlled Surgery Progress Note: Obj - Vital signs Vital signs: Vital Signs - Most Recent Temp Pulse Resp BP Pulse Ox 98.5 F 79 16 89/55 L 99 06/30/19 03:53 06/30/19 03:53 06/30/19 03:53 06/30/19 03:53 06/30/19 03:53 - Physical Exam General: no distress Wound: dressing clean,dry,intact Surgery Progress Note: Results - Labs Result Diagrams: 06/30/19 04:33 06/29/19 04:49 Lab results: Laboratory Results - last 24 hr 06/30/19 04:33 WBC 11.2 H RBC 3.08 L Hgb 8.2 L Hct 24.7 L MCV 80.1 MCH 26.7 L MCHC 33.3 RDW 13.1 Plt Count 498 H MPV 6.9 L Neutrophils % 64.9 Lymphocytes % 22.0 Monocytes % 8.0 Eosinophils % 4.9 Basophils % 0.3 Neutrophils # 7.3 H Lymphocytes # 2.5 Monocytes # 0.9 H Eosinophils # 0.5 Basophils # 0.0 Surgery Progress Note: A/P - Problem (1) Breast abscess Current Visit: Yes Code(s): N61.1 - ABSCESS OF THE BREAST AND NIPPLE Status : Acute - Plan Plan: POD 1 -wound vac vs packing -likely will need wound care in house for next few days
[2019-06-30] MEDS ORDERED: Milk Of Magnesia 30 ML UDCUP PO SCH (09:15)
--- NOTE | 2019-06-30 15:31 | PDOC.HOSPP ---
- Subjective Encounter Date: 06/30/19 Encounter Time: 15:27 Subjective: Ms. Sullivan was seen today in follow-up of right breast abscess. She notes continued improvement in swelling and pain. No new complaints. - Objective Vital Signs & Weight: Vital Signs (12 hours) Temp Pulse Resp BP Pulse Ox 06/30/19 12:00 97.6 F 80 18 107/72 98 06/30/19 08:00 97.7 F 76 18 114/75 98 06/30/19 03:53 98.5 F 79 16 89/55 L 99 Weight Admit Weight 119 lb Weight 119 lb 3.2 oz I&O: 06/29/19 06/30/19 07/01/19 06:59 06:59 06:59 Intake Total 1500 800 Balance 1500 800 Result Diagrams: 06/30/19 04:33 06/29/19 04:49 Hospitalist ROS - Medication Medications: Active Medications Generic Name Dose Route Start Last Admin Trade Name Freq PRN Reason Stop Dose Admin Acetaminophen 1,000 mg 06/26/19 12:21 06/30/19 05:23 Tylenol PO 1,000 mg Q6H PRN Administration Moderate to Severe Pain (6-10) Hydrocodone Bitart/Acetaminophen 1 tab 06/26/19 10:05 06/30/19 05:23 [place] 5/325 PO 1 tab Q4H PRN Administration Moderate to Severe Pain (6-10) Hydrocodone Bitart/Acetaminophen 1 tab 06/29/19 14:03 06/30/19 12:19 [place] 7.5/325 PO 1 tab Q6H PRN Administration Mild Pain (1-3) Dicloxacillin Sodium 500 mg 06/27/19 17:00 06/30/19 12:23 Dynapen PO 500 mg QID JOSIE Administration Docusate Sodium 100 mg 06/28/19 09:00 06/30/19 07:46 Colace PO 100 mg BID JOSIE Administration Famotidine 20 mg 06/28/19 09:00 06/30/19 07:46 Pepcid PO 20 mg BID JOSIE Administration Clindamycin Phosphate/Dextrose 50 mls @ 100 mls/hr 06/26/19 14:00 06/30/19 13 :19 600 mg/ Device IVPB 50 mls Q8HR JOSIE Administration Sodium Chloride 1,000 mls @ 90 mls/hr 06/29/19 06:45 06/30/19 07:47 Normal Saline 0.9% IV 1,000 mls .Q11H7M JOSIE Administration Ibuprofen 800 mg 06/26/19 10:04 06/30/19 12:19 Motrin PO 800 mg Q8H PRN Administration Moderate to Severe Pain (6-10) Morphine Sulfate 2 mg 06/26/19 07:53 06/30/19 13:18 Morphine SLOW IVP 2 mg Q4H PRN Administration Moderate to Severe Pain (6-10) Ondansetron HCl 4 mg 06/26/19 07:37 06/28/19 21:43 Zofran IVP 4 mg Q6H PRN Administration Nausea/Vomiting - Exam Eye: PERRL Heart: RRR, no murmur, no gallops, no rubs, normal peripheral pulses Respiratory: CTAB, no wheezes, no rales, no ronchi, normal chest expansion Gastrointestinal: soft, non-tender, non-distended, normal bowel sounds, no palpable masses, no hepatomegaly, no splenomegaly Extremities: no cyanosis (+ swelling in the right breast, decreased from yesterday, wound vac is in place) Hosp A/P (1) Breast abscess Code(s): N61.1 - ABSCESS OF THE BREAST AND NIPPLE Status: Acute (2) Mastitis Code(s): N61.0 - MASTITIS WITHOUT ABSCESS Status: Acute (3) Sepsis Code(s): A41.9 - SEPSIS, UNSPECIFIED ORGANISM Status: Acute - Plan * Mastitis, with right breast abscess- she is post I&D * Discussed with Dr. Frankel- will continue to monitor in the hospital a few more days * Continue Clindamycin and Dicloxacillin * Leukocytosis is improving
[2019-07-01] MEDS: HYDROcodone/Acetaminophen 7.5/325 mg Tablet PO PRN ×3 (03:50→16:32)
[2019-07-01] MEDS: Sodium Chloride 0.9% 1,000 ML IV SCH ×3 (05:01→19:45)
[2019-07-01 05:10] LABS: Fungus Stain Final report (.)
[2019-07-01] MEDS: Clindamycin/D5W 600 MG in Premix Bag 1 BAG IVPB SCH ×2 (05:30→13:01)
[2019-07-01] MEDS: Acetaminophen 500 MG TAB PO PRN ×2 (05:34→13:01)
[2019-07-01] MEDS: Docusate 100 MG CAP PO SCH ×2 (08:07→21:31)
[2019-07-01] MEDS: Ibuprofen 800 MG TAB PO PRN ×2 (08:07→16:03)
[2019-07-01] MEDS: Famotidine 20 MG TAB PO SCH ×2 (08:07→21:31)
--- NOTE | 2019-07-01 13:19 | PDOC.HOSPP ---
- Subjective Subjective: pt has some cramps and discomfort on the right breast, but controlled. Baby and father nearby. afebrile. - Objective Vital Signs & Weight: Vital Signs (12 hours) Temp Pulse Resp BP Pulse Ox 07/01/19 12:29 97.7 F 77 14 100/63 96 07/01/19 08:05 96 07/01/19 08:00 97.8 F 71 18 93/59 L 96 07/01/19 03:32 97.7 F 77 16 101/66 97 07/01/19 02:00 97 Weight Admit Weight 119 lb Weight 119 lb 3.2 oz I&O: 06/30/19 07/01/19 07/02/19 06:59 06:59 06:59 Intake Total 800 120 Balance 800 120 Result Diagrams: 06/30/19 04:33 06/29/19 04:49 Hospitalist ROS - Medication Medications: Active Medications Generic Name Dose Route Start Last Admin Trade Name Freq PRN Reason Stop Dose Admin Acetaminophen 1,000 mg 06/26/19 12:21 07/01/19 13:01 Tylenol PO 1,000 mg Q6H PRN Administration Moderate to Severe Pain (6-10) Hydrocodone Bitart/Acetaminophen 1 tab 06/26/19 10:05 06/30/19 22:08 [place] 5/325 PO 1 tab Q4H PRN Administration Moderate to Severe Pain (6-10) Hydrocodone Bitart/Acetaminophen 1 tab 06/29/19 14:03 07/01/19 10:07 [place] 7.5/325 PO 1 tab Q6H PRN Administration Mild Pain (1-3) Dicloxacillin Sodium 500 mg 06/27/19 17:00 07/01/19 13:01 Dynapen PO 500 mg QID JOSIE Administration Docusate Sodium 100 mg 06/28/19 09:00 07/01/19 08:07 Colace PO 100 mg BID JOSIE Administration Famotidine 20 mg 06/28/19 09:00 07/01/19 08:07 Pepcid PO 20 mg BID JOSIE Administration Clindamycin Phosphate/Dextrose 50 mls @ 100 mls/hr 06/26/19 14:00 07/01/19 13 :01 600 mg/ Device IVPB 50 mls Q8HR JOSIE Administration Sodium Chloride 1,000 mls @ 90 mls/hr 06/29/19 06:45 07/01/19 08:11 Normal Saline 0.9% IV 1,000 mls .Q11H7M JOSIE Administration Ibuprofen 800 mg 06/26/19 10:04 07/01/19 08:07 Motrin PO 800 mg Q8H PRN Administration Moderate to Severe Pain (6-10) Morphine Sulfate 2 mg 06/26/19 07:53 06/30/19 13:18 Morphine SLOW IVP 2 mg Q4H PRN Administration Moderate to Severe Pain (6-10) Ondansetron HCl 4 mg 06/26/19 07:37 06/28/19 21:43 Zofran IVP 4 mg Q6H PRN Administration Nausea/Vomiting - Exam General Appearance: NAD, awake alert, ill appearing Eye: PERRL, anicteric sclera, scleral icterus Neck: supple, symmetric, no JVD, no thyromegaly, no lymphadenopathy, no carotid bruit, JVD Respiratory: CTAB, no wheezes, no rales, no ronchi, normal chest expansion, no tachypnea, normal percussion, rales, rhonchi, tachypneic, wheezes Gastrointestinal: soft, non-tender, non-distended, normal bowel sounds, no palpable masses, no hepatomegaly, no splenomegaly, no bruit, no guarding, no rigidity, tender to palpation, distended, diminished bowl sounds, voluntary guarding Extremities: no cyanosis, no clubbing, no edema, 1+ LE edema, 2+ LE edema, clubbing Skin - other findings: right breast - wound vac. in place. serosanguinous drain. tender. Hosp A/P - Plan Breast abscess Code(s): N61.1 - ABSCESS OF THE BREAST AND NIPPLE Status: Acute (2) Mastitis Code(s): N61.0 - MASTITIS WITHOUT ABSCESS Status: Acute (3) Sepsis Code(s): A41.9 - SEPSIS, UNSPECIFIED ORGANISM Status: Acute - Plan * Mastitis, with right breast abscess- she is post I&D x2. * Discussed with Dr. Frankel- will continue to monitor in the hospital a few more days * Continue Clindamycin and Dicloxacillin * Leukocytosis ---resolved from 21K initially to 11.2 as of * Blood cx of 9th - no growth * wound cx - GNR and GPR, lactobacillus * on clindamycin IV q8hr * consider switching to PO. * hgb, bun and Cr in nl range. Periodic lab draw of bmp and cbc. * * will monitor the clinical course.
--- NOTE | 2019-07-01 15:01 | PDOC.GSPN ---
Surgery Progress Note: Subj - Subjective Narrative: Pain improved. Nursing on left, pumping on right Surgery Progress Note: Obj - Vital signs Vital signs: Vital Signs - Most Recent Temp Pulse Resp BP Pulse Ox 97.7 F 77 14 100/63 96 07/01/19 12:29 07/01/19 12:29 07/01/19 12:29 07/01/19 12:29 07/01/19 12:29 - Physical Exam General: no distress Wound: wound vac Surgery Progress Note: Results - Labs Result Diagrams: 06/30/19 04:33 06/29/19 04:49 Lab results: Laboratory Results - last 24 hr 06/26/19 12:15 Fungus Stain Surgery Progress Note: A/P - Problem (1) Breast abscess Current Visit: Yes Code(s): N61.1 - ABSCESS OF THE BREAST AND NIPPLE Status : Acute - Plan Plan: Hopefully can arrange home vac. Her wound will close in faster. -continue abx -home tomorrow if wound vac allowed. otherwise may need to stay for a few more vac changes
[2019-07-01] MEDS: HYDROcodone/Acetaminophen 5/325 mg Tablet PO PRN (20:16)
[2019-07-01] MEDS: Clindamycin 150 MG CAP PO SCH (21:31)
[2019-07-02] MEDS: Ibuprofen 800 MG TAB PO PRN ×2 (03:13→12:08)
[2019-07-02] MEDS: Sodium Chloride 0.9% 1,000 ML IV SCH (05:36)
[2019-07-02] MEDS: Clindamycin 150 MG CAP PO SCH ×2 (05:36→13:38)
[2019-07-02] MEDS: HYDROcodone/Acetaminophen 5/325 mg Tablet PO PRN (05:47)
[2019-07-02] MEDS: Famotidine 20 MG TAB PO SCH (07:49)
[2019-07-02] MEDS: Docusate 100 MG CAP PO SCH (07:49)
--- NOTE | 2019-07-02 10:25 | PDOC.HOSPP ---
- Subjective Subjective: [pt did not had BM today. pain controlled - pt agreed to be off morphine and try norco prn] - she is on stool softener. right breast no erthema, wound vac in place, still draining. - Objective Vital Signs & Weight: Vital Signs (12 hours) Temp Pulse Resp BP Pulse Ox 07/02/19 07:52 98.0 F 82 14 98/61 97 07/02/19 07:50 97 07/02/19 03:02 97.7 F 80 16 95/57 L 97 07/01/19 23:11 97.7 F 80 16 94/59 L 97 Weight Admit Weight 119 lb Weight 119 lb 3.2 oz I&O: 07/01/19 07/02/19 07/03/19 06:59 06:59 06:59 Intake Total 2160 240 Balance 2160 240 Result Diagrams: 06/30/19 04:33 06/29/19 04:49 Hospitalist ROS - Medication Medications: Active Medications Generic Name Dose Route Start Last Admin Trade Name Freq PRN Reason Stop Dose Admin Acetaminophen 1,000 mg 06/26/19 12:21 07/01/19 13:01 Tylenol PO 1,000 mg Q6H PRN Administration Moderate to Severe Pain (6-10) Clindamycin HCl 600 mg 07/01/19 22:00 07/02/19 05:36 [place] PO 600 mg Q8HR JOSIE Administration Dicloxacillin Sodium 500 mg 06/27/19 17:00 07/02/19 07:50 Dynapen PO 500 mg QID JOSIE Administration Docusate Sodium 100 mg 06/28/19 09:00 07/02/19 07:49 Colace PO 100 mg BID JOSIE Administration Famotidine 20 mg 06/28/19 09:00 07/02/19 07:49 Pepcid PO 20 mg BID JOSIE Administration Sodium Chloride 1,000 mls @ 90 mls/hr 06/29/19 06:45 07/02/19 05:36 Normal Saline 0.9% IV 1,000 mls .Q11H7M JOSIE Administration Ibuprofen 800 mg 06/26/19 10:04 07/02/19 03:13 Motrin PO 800 mg Q8H PRN Administration Moderate to Severe Pain (6-10) Ondansetron HCl 4 mg 06/26/19 07:37 06/28/19 21:43 Zofran IVP 4 mg Q6H PRN Administration Nausea/Vomiting - Exam General Appearance: NAD, awake alert, ill appearing ENT: normocephalic atraumatic, no oropharyngeal lesions, moist mucosa, dry oral mucosa Heart: RRR, no murmur, no gallops, no rubs, normal peripheral pulses, irregular , diminshed peripheral pulses, murmur present, II/IV, III/IV Respiratory: CTAB, no wheezes, no rales, no ronchi, normal chest expansion, no tachypnea, normal percussion, rales, rhonchi, tachypneic, wheezes Gastrointestinal: soft, non-tender, non-distended, normal bowel sounds, no palpable masses, no hepatomegaly, no splenomegaly, no bruit, no guarding, no rigidity, tender to palpation, distended, diminished bowl sounds, voluntary guarding Skin - other findings: right breast no erthema, wound vac in place, still draining. Hosp A/P - Plan Breast abscess Code(s): N61.1 - ABSCESS OF THE BREAST AND NIPPLE Status: Acute (2) Mastitis Code(s): N61.0 - MASTITIS WITHOUT ABSCESS Status: Acute (3) Sepsis Code(s): A41.9 - SEPSIS, UNSPECIFIED ORGANISM Status: Acute - Plan * Mastitis, with right breast abscess- she is post I&D x2. * Discussed with Dr. Frankel- will continue to monitor in the hospital a few more days * Continue Clindamycin and Dicloxacillin * Leukocytosis ---resolved from 21K initially to 11.2 as of * Blood cx of 9th - no growth * wound cx - GNR and GPR, lactobacillus * on clindamycin IV q8hr * consider switching to PO. * hgb, bun and Cr in nl range. Periodic lab draw of bmp and cbc. * * * am labs - to be followed as plan for dc in 1 to 2 days * - abx changed form IV to PO clinda and dicloxacillin x 3 weeks at the discretion of rounding physician. * morphine dc'd on 16 and PO norco PRN + stool softeners[pt did not had BM today.] *
[2019-07-02] MEDS: HYDROcodone/Acetaminophen 7.5/325 mg Tablet PO PRN ×2 (10:40→16:15)
[2019-07-02 11:13] LABS: #Eosinphils 0.4 thou/uL (0.0-0.7); #Monocytes 0.4 thou/uL (0.11-0.59); #Neutrophils 3.3 thou/uL (1.40-6.50); %Basophils 0.5 % (0.0-1.0); %Eosinophils 5.9 % (0.0-10.0); %Lymphocytes 32.7 % (21.0-51.0); %Neutrophils 54.9 % (42.0-75.0); Mean Corpuscular HGB CONC 32.8 g/dL (32.0-36.0); Mean Corpuscular Hemoglobin 26.4 pg (27.0-31.0); Mean Corpuscular Volume 80.4 fL (78.0-98.0); Mean Platelet Volume 6.7 fL (7.4-10.4); Platelet Count 764 thou/uL (130-400); RBC Distribution Width 13.4 % (11.5-14.5); Red Blood Cell (RBC) Count 3.78 mill/uL (4.20-5.40)
--- NOTE | 2019-07-02 13:03 | PRG ---
DATE OF SERVICE: 07/02/2019 Ms. Sullivan has no complaints. She has no pain except for dressing changes. PHYSICAL EXAMINATION: The skin around the wound VAC site is clear. Home wound VAC is likely to be approved today. She is afebrile. Vital signs are stable. Her cultures only showed lactobacillus. ASSESSMENT: Status post right axillary abscess drainage with wound vacuum assisted closure getting set up for home. PLAN: She has had a week of antibiotics. I do not think she needs anymore. This lactobacillus is a benign skin contaminant and common in breast milk, so likely does not need to be treated. I sent prescription for [place] and Zofran to her pharmacy and she will follow up with me in 2 weeks for wound check. Job ID: [id number]
[2019-07-02 16:37] VITALS: BP 114/72; TEMP 97.9
== END 2019-07-02 17:35 | disposition home or self-care (01) | DRG 855 ==
LOC: ERS 18:38 → SJJU 06-26 01:15
PROVIDERS: ADMIT Hospitalist; ATTEND Hospitalist
PROC: 0H9T3ZX Drainage of Right Breast, Percutaneous Approach, Diagnostic (ICD-10-PCS; principal; 2019-06-26)
PROC: 0H9T0ZZ Drainage of Right Breast, Open Approach (ICD-10-PCS; 2019-06-29)
DX: A41.9 Sepsis, unspecified organism (principal); N61.1 Abscess of the breast and nipple
CPT/HCPCS: 19083; 36415; 80048; 80053; 83605; 85025; 85060; 87040; 87070; 87076; 87102; 87205; 87206; 88173; 88305; 89051; 96361; 96365; J2270; J2405; J2704; J3010; J3480; J3490; S0020; S0028

== ENCOUNTER 2019-07-03 22:29 | Emergency (ER) | payer MEDICAID, SELFPAY | END 2019-07-04 00:05 | disposition home or self-care (01) | LOC: ERS 22:29 | DX: T85.698A Other mechanical complication of other specified internal prosthetic devices, implants and grafts, initial encounter (principal) | CPT/HCPCS: 99282 ==

== ENCOUNTER 2021-03-18 07:47 | Emergency (ER) | payer SELFPAY | END 2021-03-18 08:10 | disposition short-term general hospital (02) | LOC: ERS 07:47 | DX: O47.1 False labor at or after 37 completed weeks of gestation (principal) | CPT/HCPCS: 99284 ==